=== PATIENT | female | born 2000 | race African-American/Black ===

== ENCOUNTER 2022-07-27 09:47 | Inpatient (IN) | payer OTHER, SELFPAY ==
[2022-07-27 10:21] VITALS: BMI 23.8
[2022-07-27] MEDS ORDERED: hydrALAZINE 20 MG/ML VIAL SLOW IVP PRN ×2 (10:22→16:17)
[2022-07-27 10:54] LABS: #Basophils 0.1 10x3/uL (0.0-0.2); #Eosinphils 0.1 10x3/uL (0.0-0.5); #Monocytes 0.8 10x3/uL (0.0-1.1); #Neutrophils 5.5 10x3/uL (1.5-8.4); %Basophils 0.7 % (0.0-2.0); %Eosinophils 1.4 % (0.0-6.0); %Lymphocytes 16.9 % (18.0-47.0); %Monocytes 10.2 % (0.0-10.0); %Neutrophils 68.6 % (40.0-75.0); Hemoglobin 12.7 g/dL (12.0-15.5); Mean Corpuscular HGB CONC 35.2 g/dL (32.0-36.0); Mean Corpuscular Hemoglobin 33.4 pg (27.0-33.0); Mean Platelet Volume 12.1 fl (7.4-10.4); Platelet Count 146 10x3/uL (150-450); RBC Distribution Width 12.5 % (11.5-14.5)
[2022-07-27 11:08] LABS: ALT (SGPT) 41 U/L (8-55); AST (SGOT) 42 U/L (5-34); Albumin 3.6 g/dL (3.5-5.0); Alkaline Phosphatase 157 U/L (40-110); Anion Gap 12 mmol/L (10-20); BUN (Urea Nitrogen) 8 mg/dL (7.0-18.7); Bilirubin, Total 1.1 mg/dL (0.2-1.2); Calc. Creatinine Clearance 120 mL/min (70-130); Calcium 9.4 mg/dL (7.8-10.44); Carbon Dioxide 22 mmol/L (22-29); Chloride 105 mmol/L (98-107); Estimated GFR 101; Globulin 3.7 g/dL (2.4-3.5); Glucose 72 mg/dL (70-105); Potassium 3.6 mmol/L (3.5-5.1); Protein, Total 7.3 g/dL (6.0-8.3); Sodium 135 mmol/L (136-145)
[2022-07-27 11:25] LABS: Creatinine, Urine 239.71 mg/dL (47-110)
[2022-07-27 11:39] LABS: Amphetamine Not Detected (NotDetected); Barbiturates Screen Not Detected (NotDetected); Benzodiazepine Screen Not Detected (NotDetected); Cocaine Metabolite Screen Not Detected (NotDetected); Methadone Not Detected (NotDetected); Methamphetamine Not Detected (NotDetected); Opiate Screen Not Detected (NotDetected); Oxycodone Screen Not Detected (NotDetected); Phencyclidine (PCP) Not Detected (NotDetected); THC/Cannabinoid Screen Detected (NotDetected); Tricyclic Screen Not Detected (NotDetected)
[2022-07-27 11:45] LABS: HBSAg Index 0.12 S/CO (0-0.99); HIV (1/2) Antibody/Antigen Non-Reactive (NonReactive); HIV 1/2 INDEX 0.08 S/CO (<1.00); Hep B Surf Ag Non-Reactive S/CO (NonReactive)
[2022-07-27 12:22] LABS: Syphilis Antibody Index 24.52 S/CO (<1.00 Non-Reactive)
[2022-07-27 12:25] LABS: Syphilis Antibody REACTIVE (Nonreactive)
[2022-07-27] MEDS ORDERED: hydrOXYzine 25 MG TAB PO PRN (16:58)
[2022-07-27 17:34] LABS: Hep C IgG Ab Non-Reactive (NonReactive); Hep C Index 0.07 S/CO (0-0.79)
[2022-07-27] MEDS: Prenatal Vitamin 1 TAB PO SCH (20:25)
[2022-07-28] MEDS: Prenatal Vitamin 1 TAB PO SCH (20:43)
[2022-07-29] MEDS ORDERED: Bicillin LA 2.4 MILL.UNITS/4 ML SYRINGE IM SCH (09:00)
[2022-07-29] MEDS: Prenatal Vitamin 1 TAB PO SCH (23:42)
[2022-07-30] MEDS: Prenatal Vitamin 1 TAB PO SCH (21:34)
[2022-07-31] MEDS ORDERED: Bupivacaine/Epinephrine 0.25% 30 ML VIAL ONE (08:00)
[2022-07-31 08:07] LABS: #Eosinphils 0.1 10x3/uL (0.0-0.5); #Monocytes 0.8 10x3/uL (0.0-1.1); #Neutrophils 4.9 10x3/uL (1.5-8.4); %Basophils 0.5 % (0.0-2.0); %Eosinophils 1.6 % (0.0-6.0); %Lymphocytes 18.5 % (18.0-47.0); %Monocytes 11.1 % (0.0-10.0); %Neutrophils 65.7 % (40.0-75.0); Hemoglobin 12.4 g/dL (12.0-15.5); Mean Corpuscular HGB CONC 34.6 g/dL (32.0-36.0); Mean Corpuscular Hemoglobin 33.1 pg (27.0-33.0); Mean Corpuscular Volume 95.5 fl (81.6-98.3); Mean Platelet Volume 12.2 fl (7.4-10.4); Platelet Count 141 10x3/uL (150-450); RBC Distribution Width 12.9 % (11.5-14.5); Red Blood Cell (RBC) Count 3.75 10x6/uL (3.90-5.03); White Blood Cell (WBC) Count 7.4 10x3/uL (3.5-10.5)
[2022-07-31 08:31] LABS: ALT (SGPT) 78 U/L (8-55); AST (SGOT) 64 U/L (5-34); Albumin 3.2 g/dL (3.5-5.0); Alkaline Phosphatase 140 U/L (40-110); Anion Gap 11 mmol/L (10-20); BUN (Urea Nitrogen) 9 mg/dL (7.0-18.7); Bilirubin, Total 1.4 mg/dL (0.2-1.2); Calc. Creatinine Clearance 118 mL/min (70-130); Calcium 9.3 mg/dL (7.8-10.44); Carbon Dioxide 22 mmol/L (22-29); Chloride 106 mmol/L (98-107); Estimated GFR 98; Globulin 3.5 g/dL (2.4-3.5); Glucose 68 mg/dL (70-105); Potassium 3.8 mmol/L (3.5-5.1); Protein, Total 6.7 g/dL (6.0-8.3); Sodium 135 mmol/L (136-145); Uric Acid 5.2 mg/dL (2.6-6.0)
[2022-07-31 13:55] LABS: Creatinine, Urine 40.28 mg/dL (47-110); Protein, Urine Random Quant Less than 10 mg/dL (1-14)
[2022-07-31 15:31] LABS: #Basophils 0.1 10x3/uL (0.0-0.2); #Eosinphils 0.1 10x3/uL (0.0-0.5); #Neutrophils 5.5 10x3/uL (1.5-8.4); %Basophils 0.6 % (0.0-2.0); %Eosinophils 1.2 % (0.0-6.0); %Lymphocytes 15.5 % (18.0-47.0); %Monocytes 12.4 % (0.0-10.0); %Neutrophils 68.2 % (40.0-75.0); Hemoglobin 12.5 g/dL (12.0-15.5); Mean Corpuscular HGB CONC 34.9 g/dL (32.0-36.0); Mean Corpuscular Hemoglobin 33.1 pg (27.0-33.0); Mean Corpuscular Volume 94.7 fl (81.6-98.3); Mean Platelet Volume 12.2 fl (7.4-10.4); Platelet Count 153 10x3/uL (150-450); RBC Distribution Width 12.9 % (11.5-14.5); Red Blood Cell (RBC) Count 3.78 10x6/uL (3.90-5.03); White Blood Cell (WBC) Count 8.1 10x3/uL (3.5-10.5)
[2022-07-31 15:45] LABS: INR-International Normal Ratio 0.9; PTT 28.8 sec (22.0-33.0); Prothrombin Time 9.8 sec (9.5-12.1)
[2022-07-31 15:52] LABS: ALT (SGPT) 86 U/L (8-55); AST (SGOT) 70 U/L (5-34); Albumin 3.4 g/dL (3.5-5.0); Alkaline Phosphatase 148 U/L (40-110); Anion Gap 12 mmol/L (10-20); BUN (Urea Nitrogen) 11 mg/dL (7.0-18.7); Bilirubin, Total 1.4 mg/dL (0.2-1.2); Calc. Creatinine Clearance 122 mL/min (70-130); Calcium 9.4 mg/dL (7.8-10.44); Carbon Dioxide 21 mmol/L (22-29); Chloride 106 mmol/L (98-107); Estimated GFR 102; Globulin 3.6 g/dL (2.4-3.5); Glucose 79 mg/dL (70-105); Potassium 4.1 mmol/L (3.5-5.1); Sodium 135 mmol/L (136-145); Uric Acid 5.1 mg/dL (2.6-6.0)
[2022-07-31] MEDS: Betamet Acet/Betamet Na Ph 30 MG/5 ML VIAL IM SCH (16:55)
[2022-07-31] MEDS: Prenatal Vitamin 1 TAB PO SCH (20:36)
[2022-07-31 21:14] LABS: Platelet Count 152 10x3/uL (150-450)
[2022-08-01 07:53] LABS: #Monocytes 0.7 10x3/uL (0.0-1.1); #Neutrophils 11.2 10x3/uL (1.5-8.4); %Basophils 0.3 % (0.0-2.0); %Eosinophils 0.1 % (0.0-6.0); %Lymphocytes 6.5 % (18.0-47.0); %Monocytes 5.3 % (0.0-10.0); %Neutrophils 85.2 % (40.0-75.0); Hemoglobin 12.6 g/dL (12.0-15.5); Mean Corpuscular HGB CONC 35.1 g/dL (32.0-36.0); Mean Corpuscular Hemoglobin 33.2 pg (27.0-33.0); Mean Corpuscular Volume 94.5 fl (81.6-98.3); Mean Platelet Volume 12.4 fl (7.4-10.4); Platelet Count 146 10x3/uL (150-450); RBC Distribution Width 12.8 % (11.5-14.5); White Blood Cell (WBC) Count 13.2 10x3/uL (3.5-10.5)
[2022-08-01 08:07] LABS: ALT (SGPT) 106 U/L (8-55); AST (SGOT) 83 U/L (5-34); Albumin 3.4 g/dL (3.5-5.0); Alkaline Phosphatase 147 U/L (40-110); Anion Gap 12 mmol/L (10-20); BUN (Urea Nitrogen) 9 mg/dL (7.0-18.7); Bilirubin, Total 1.4 mg/dL (0.2-1.2); Calc. Creatinine Clearance 118 mL/min (70-130); Carbon Dioxide 20 mmol/L (22-29); Chloride 105 mmol/L (98-107); Estimated GFR 98; Globulin 3.7 g/dL (2.4-3.5); Glucose 94 mg/dL (70-105); Potassium 4.3 mmol/L (3.5-5.1); Protein, Total 7.1 g/dL (6.0-8.3); Sodium 133 mmol/L (136-145)
[2022-08-01 08:24] LABS: INR-International Normal Ratio 0.9; Prothrombin Time 9.8 sec (9.5-12.1)
[2022-08-01] MEDS: Betamet Acet/Betamet Na Ph 30 MG/5 ML VIAL IM SCH (12:38)
[2022-08-01 12:43] LABS: Creatinine, Urine 229.16 mg/dL (47-110)
[2022-08-01] MEDS: Lactated Ringer's 1,000 ML IV SCH (19:32)
[2022-08-01] MEDS ORDERED: Lorazepam 2 MG/ML VIAL SLOW IVP PRN (20:37)
[2022-08-01] MEDS ORDERED: Calcium Gluc 4.6 MEQ/10 ML (100 MG/ML) SLOW IVP PRN (20:37)
[2022-08-01] MEDS ORDERED: hydrALAZINE 20 MG/ML VIAL SLOW IVP PRN ×2 (20:37)
[2022-08-01] MEDS ORDERED: Labetalol HCl 100 MG/20 ML VIAL SLOW IVP PRN ×2 (20:37)
[2022-08-01] MEDS ORDERED: Lidocaine 1% (PF) 30 ML VIAL SC PRN (20:38)
[2022-08-01 20:45] LABS: SARS-CoV-2 NAA Rapid Test Not Detected (NotDetected)
[2022-08-01] MEDS ORDERED: Penicillin G Potassium 5 MILL.UNITS in Sodium Chloride 0.9% 100 ML IVPB SCH (20:45)
[2022-08-01] MEDS: Magnesium Sulfate 20 gm/500 ml 20 GM/500 ML BAG IVPB SCH (21:01)
[2022-08-02] MEDS: Penicillin G 2.5 MILL.units 2.5 MILL.UNITS in Premix Bag 1 BAG IVPB SCH ×7 (01:23→23:30)
[2022-08-02] MEDS: Magnesium Sulfate 20 gm/500 ml 20 GM/500 ML BAG IVPB SCH ×2 (04:50→15:03)
[2022-08-02 04:53] LABS: #Monocytes 1.2 10x3/uL (0.0-1.1); #Neutrophils 15.4 10x3/uL (1.5-8.4); %Basophils 0.2 % (0.0-2.0); %Lymphocytes 5.2 % (18.0-47.0); %Monocytes 6.5 % (0.0-10.0); %Neutrophils 85.6 % (40.0-75.0); Hemoglobin 11.3 g/dL (12.0-15.5); Mean Corpuscular HGB CONC 34.7 g/dL (32.0-36.0); Mean Corpuscular Hemoglobin 32.5 pg (27.0-33.0); Mean Corpuscular Volume 93.7 fl (81.6-98.3); Mean Platelet Volume 12.2 fl (7.4-10.4); Platelet Count 156 10x3/uL (150-450); RBC Distribution Width 12.9 % (11.5-14.5); Red Blood Cell (RBC) Count 3.48 10x6/uL (3.90-5.03)
[2022-08-02 05:11] LABS: ALT (SGPT) 145 U/L (8-55); AST (SGOT) 109 U/L (5-34); Albumin 3.2 g/dL (3.5-5.0); Alkaline Phosphatase 145 U/L (40-110); Anion Gap 14 mmol/L (10-20); BUN (Urea Nitrogen) 11 mg/dL (7.0-18.7); Calc. Creatinine Clearance 114 mL/min (70-130); Calcium 8.5 mg/dL (7.8-10.44); Carbon Dioxide 18 mmol/L (22-29); Chloride 107 mmol/L (98-107); Estimated GFR 94; Globulin 3.3 g/dL (2.4-3.5); Glucose 103 mg/dL (70-105); Potassium 4.1 mmol/L (3.5-5.1); Protein, Total 6.5 g/dL (6.0-8.3); Sodium 135 mmol/L (136-145)
[2022-08-02 05:18] LABS: INR-International Normal Ratio 0.9; PTT 25.1 sec (22.0-33.0); Prothrombin Time 9.3 sec (9.5-12.1)
[2022-08-02] MEDS ORDERED: Fentanyl 2 mcg/Bup 0.1% Cadd 100 ML ONE (05:53)
[2022-08-02] MEDS ORDERED: Lactated Ringer's 500 ML IV PRN (06:47)
[2022-08-02] MEDS ORDERED: diphenhydrAMINE 50 MG/ML VIAL IVP PRN (06:47)
[2022-08-02] MEDS ORDERED: Naloxone HCl 0.4 mg/ml Vial IVP PRN ×2 (06:47)
[2022-08-02] MEDS ORDERED: ePHEDrine Sulfate 50 MG/10 ML VIAL SLOW IVP PRN (06:47)
[2022-08-02] MEDS ORDERED: Ondansetron PF 4 MG/2 ML Vial IVP PRN (06:47)
[2022-08-02] MEDS ORDERED: Promethazine HCl 25 MG/ML VIAL IM PRN (06:47)
[2022-08-02] MEDS ORDERED: Acetaminophen 325 MG TAB PO PRN (06:47)
[2022-08-02] MEDS ORDERED: Moisturizing Cream (Eucerin) 113 GM JAR TOP PRN (06:47)
[2022-08-02] MEDS ORDERED: Fentanyl 2 mcg/Bupivacaine 0.1% Cassette 100 ML EPIDURAL SCH (07:00)
[2022-08-02] MEDS ORDERED: Communication Order-Pharmacy FS SCH (07:00)
[2022-08-02] MEDS ORDERED: CEFAZOLIN 2 GM VIAL ONE (07:29)
[2022-08-02] MEDS ORDERED: Terbutaline Sulfate 1 MG/ML VIAL ONE (07:29)
[2022-08-02] MEDS ORDERED: Sodium Chloride 0.9% 100 ML ONE (07:30)
[2022-08-02] MEDS ORDERED: Famotidine/PF 20 mg/2ml Vial ONE (07:30)
[2022-08-02] MEDS ORDERED: Mineral Oil ENEMA ONE (07:30)
[2022-08-02] MEDS ORDERED: Mineral Oil Sterile 10 ML VIAL PO SCH (08:00)
[2022-08-02] MEDS ORDERED: Terbutaline Sulfate 1 MG/ML VIAL SC SCH (08:00)
[2022-08-02] MEDS ORDERED: Misoprostol 100 MCG TAB ONE (09:21)
[2022-08-02] MEDS ORDERED: NS w/ Oxytocin 30 units 500 ML ONE (09:32)
[2022-08-02] MEDS: NS w/ Oxytocin 30 units 500 ML IV SCH ×2 (09:34→17:14)
[2022-08-02 11:01] LABS: Group B Streptococcus by PCR DETECTED (NotDetected)
[2022-08-02] MEDS ORDERED: Calcium Carbonate 500 MG ChewTAB PO PRN (12:50)
[2022-08-02 18:26] LABS: Mean Corpuscular HGB CONC 34.3 g/dL (32.0-36.0); Mean Corpuscular Hemoglobin 32.7 pg (27.0-33.0); Mean Corpuscular Volume 95.5 fl (81.6-98.3); Platelet Count 142 10x3/uL (150-450); Red Blood Cell (RBC) Count 3.97 10x6/uL (3.90-5.03); White Blood Cell (WBC) Count 13.3 10x3/uL (3.5-10.5)
[2022-08-02 18:35] LABS: INR-International Normal Ratio 0.9; Prothrombin Time 9.3 sec (9.5-12.1)
[2022-08-02 19:02] LABS: ALT (SGPT) 223 U/L (8-55); AST (SGOT) 162 U/L (5-34); Alkaline Phosphatase 166 U/L (40-110); Anion Gap 16 mmol/L (10-20); BUN (Urea Nitrogen) 10 mg/dL (7.0-18.7); Bilirubin, Total 1.4 mg/dL (0.2-1.2); Calc. Creatinine Clearance 93 mL/min (70-130); Calcium 8.6 mg/dL (7.8-10.44); Carbon Dioxide 19 mmol/L (22-29); Chloride 103 mmol/L (98-107); Estimated GFR 74; Globulin 4.3 g/dL (2.4-3.5); Glucose 88 mg/dL (70-105); Potassium 3.8 mmol/L (3.5-5.1); Protein, Total 8.3 g/dL (6.0-8.3); Sodium 134 mmol/L (136-145)
[2022-08-02] MEDS: Prenatal Vitamin 1 TAB PO SCH ×2 (19:18→23:28)
[2022-08-02] MEDS: Lactated Ringer's 1,000 ML IV SCH (19:19)
[2022-08-02 20:09] LABS: Magnesium 9.1 mg/dL (1.6-2.6)
[2022-08-02] MEDS ORDERED: Misoprostol 200 MCG TAB ONE (21:27)
[2022-08-02] MEDS ORDERED: Tranexamic Acid 1,000 MG/10 ML VIAL ONE (21:27)
[2022-08-02] MEDS ORDERED: Bisacodyl 10 MG SUPP PR PRN (22:03)
[2022-08-03 01:10] LABS: Hemoglobin 11.5 g/dL (12.0-15.5); Mean Corpuscular HGB CONC 34.4 g/dL (32.0-36.0); Mean Corpuscular Hemoglobin 32.7 pg (27.0-33.0); Mean Corpuscular Volume 94.9 fl (81.6-98.3); Mean Platelet Volume 11.4 fl (7.4-10.4); Platelet Count 152 10x3/uL (150-450); RBC Distribution Width 13.1 % (11.5-14.5); Red Blood Cell (RBC) Count 3.52 10x6/uL (3.90-5.03); White Blood Cell (WBC) Count 11.8 10x3/uL (3.5-10.5)
[2022-08-03 01:21] LABS: INR-International Normal Ratio 0.9; PTT 25.3 sec (22.0-33.0); Prothrombin Time 9.4 sec (9.5-12.1)
[2022-08-03 01:33] LABS: ALT (SGPT) 159 U/L (8-55); AST (SGOT) 112 U/L (5-34); Alkaline Phosphatase 123 U/L (40-110); Anion Gap 14 mmol/L (10-20); BUN (Urea Nitrogen) 9 mg/dL (7.0-18.7); Bilirubin, Total 1.4 mg/dL (0.2-1.2); Calc. Creatinine Clearance 98 mL/min (70-130); Calcium 8.2 mg/dL (7.8-10.44); Carbon Dioxide 20 mmol/L (22-29); Chloride 105 mmol/L (98-107); Estimated GFR 79; Globulin 3.1 g/dL (2.4-3.5); Glucose 127 mg/dL (70-105); Magnesium 6.4 mg/dL (1.6-2.6); Potassium 3.5 mmol/L (3.5-5.1); Protein, Total 6.1 g/dL (6.0-8.3); Sodium 135 mmol/L (136-145)
[2022-08-03 05:13] LABS: ALT (SGPT) 136 U/L (8-55); AST (SGOT) 92 U/L (5-34); Albumin 2.7 g/dL (3.5-5.0); Alkaline Phosphatase 108 U/L (40-110); Anion Gap 10 mmol/L (10-20); BUN (Urea Nitrogen) 8 mg/dL (7.0-18.7); Bilirubin, Total 1.3 mg/dL (0.2-1.2); Calc. Creatinine Clearance 106 mL/min (70-130); Carbon Dioxide 23 mmol/L (22-29); Chloride 106 mmol/L (98-107); Estimated GFR 87; Globulin 2.8 g/dL (2.4-3.5); Glucose 82 mg/dL (70-105); Potassium 3.9 mmol/L (3.5-5.1); Protein, Total 5.5 g/dL (6.0-8.3); Sodium 135 mmol/L (136-145)
[2022-08-03 05:17] LABS: #Monocytes 1.6 10x3/uL (0.0-1.1); #Neutrophils 8.6 10x3/uL (1.5-8.4); %Basophils 0.3 % (0.0-2.0); %Eosinophils 0.3 % (0.0-6.0); %Lymphocytes 9.5 % (18.0-47.0); %Monocytes 13.5 % (0.0-10.0); %Neutrophils 74.8 % (40.0-75.0); Hemoglobin 10.3 g/dL (12.0-15.5); Mean Corpuscular HGB CONC 34.4 g/dL (32.0-36.0); Mean Corpuscular Hemoglobin 32.5 pg (27.0-33.0); Mean Corpuscular Volume 94.3 fl (81.6-98.3); Mean Platelet Volume 11.6 fl (7.4-10.4); Platelet Count 149 10x3/uL (150-450); RBC Distribution Width 12.9 % (11.5-14.5); Red Blood Cell (RBC) Count 3.17 10x6/uL (3.90-5.03); White Blood Cell (WBC) Count 11.5 10x3/uL (3.5-10.5)
[2022-08-03 05:25] LABS: Magnesium 5.2 mg/dL (1.6-2.6)
[2022-08-03] MEDS: Lactated Ringer's 1,000 ML IV SCH ×2 (05:53→17:57)
[2022-08-03] MEDS: Ibuprofen 800 MG TAB PO SCH ×3 (05:53→22:55)
[2022-08-03 15:47] LABS: Magnesium 4.7 mg/dL (1.6-2.6)
[2022-08-03] MEDS: Ferrous Sulfate 325 MG TAB PO SCH (22:37)
[2022-08-03] MEDS: Penicillin G 2.5 MILL.units 2.5 MILL.UNITS in Premix Bag 1 BAG IVPB SCH (22:38)
[2022-08-03] MEDS: Prenatal Vitamin 1 TAB PO SCH (22:38)
[2022-08-03] MEDS: Docusate 100 MG CAP PO SCH (22:38)
[2022-08-04] MEDS: Ibuprofen 800 MG TAB PO SCH ×3 (02:04→18:04)
[2022-08-04 04:30] LABS: #Eosinphils 0.1 10x3/uL (0.0-0.5); #Monocytes 1.4 10x3/uL (0.0-1.1); #Neutrophils 6.4 10x3/uL (1.5-8.4); %Basophils 0.4 % (0.0-2.0); %Eosinophils 0.9 % (0.0-6.0); %Lymphocytes 18.1 % (18.0-47.0); %Monocytes 14.1 % (0.0-10.0); %Neutrophils 65.4 % (40.0-75.0); Hemoglobin 10.5 g/dL (12.0-15.5); Mean Corpuscular HGB CONC 34.3 g/dL (32.0-36.0); Mean Corpuscular Hemoglobin 32.7 pg (27.0-33.0); Mean Corpuscular Volume 95.3 fl (81.6-98.3); Platelet Count 154 10x3/uL (150-450); Red Blood Cell (RBC) Count 3.21 10x6/uL (3.90-5.03); White Blood Cell (WBC) Count 9.8 10x3/uL (3.5-10.5)
[2022-08-04 04:33] LABS: ALT (SGPT) 164 U/L (8-55); AST (SGOT) 108 U/L (5-34); Albumin 2.6 g/dL (3.5-5.0); Alkaline Phosphatase 108 U/L (40-110); Anion Gap 14 mmol/L (10-20); BUN (Urea Nitrogen) 10 mg/dL (7.0-18.7); Bilirubin, Total 0.6 mg/dL (0.2-1.2); Calc. Creatinine Clearance 106 mL/min (70-130); Calcium 8.3 mg/dL (7.8-10.44); Carbon Dioxide 23 mmol/L (22-29); Chloride 107 mmol/L (98-107); Estimated GFR 87; Globulin 2.9 g/dL (2.4-3.5); Glucose 81 mg/dL (70-105); Potassium 3.6 mmol/L (3.5-5.1); Protein, Total 5.5 g/dL (6.0-8.3); Sodium 140 mmol/L (136-145)
[2022-08-04] MEDS: Docusate 100 MG CAP PO SCH ×2 (08:31→21:22)
[2022-08-04] MEDS: Ferrous Sulfate 325 MG TAB PO SCH ×2 (08:31→18:32)
[2022-08-04] MEDS: Prenatal Vitamin 1 TAB PO SCH (21:21)
[2022-08-05] MEDS: Ibuprofen 800 MG TAB PO SCH ×3 (01:02→17:36)
[2022-08-05 05:01] LABS: #Basophils 0.1 10x3/uL (0.0-0.2); #Eosinphils 0.2 10x3/uL (0.0-0.5); #Monocytes 1.1 10x3/uL (0.0-1.1); #Neutrophils 7.5 10x3/uL (1.5-8.4); %Basophils 0.5 % (0.0-2.0); %Eosinophils 1.9 % (0.0-6.0); %Lymphocytes 18.7 % (18.0-47.0); %Monocytes 9.9 % (0.0-10.0); Hemoglobin 10.3 g/dL (12.0-15.5); Mean Corpuscular HGB CONC 33.9 g/dL (32.0-36.0); Mean Corpuscular Hemoglobin 32.4 pg (27.0-33.0); Mean Corpuscular Volume 95.6 fl (81.6-98.3); Mean Platelet Volume 11.7 fl (7.4-10.4); Platelet Count 149 10x3/uL (150-450); RBC Distribution Width 12.9 % (11.5-14.5); Red Blood Cell (RBC) Count 3.18 10x6/uL (3.90-5.03); White Blood Cell (WBC) Count 11.1 10x3/uL (3.5-10.5)
[2022-08-05 05:14] LABS: ALT (SGPT) 178 U/L (8-55); AST (SGOT) 118 U/L (5-34); Albumin 2.6 g/dL (3.5-5.0); Alkaline Phosphatase 104 U/L (40-110); Anion Gap 10 mmol/L (10-20); BUN (Urea Nitrogen) 11 mg/dL (7.0-18.7); Bilirubin, Total 0.4 mg/dL (0.2-1.2); Calc. Creatinine Clearance 116 mL/min (70-130); Calcium 8.9 mg/dL (7.8-10.44); Carbon Dioxide 25 mmol/L (22-29); Chloride 107 mmol/L (98-107); Estimated GFR 97; Globulin 2.7 g/dL (2.4-3.5); Glucose 71 mg/dL (70-105); Potassium 4.2 mmol/L (3.5-5.1); Protein, Total 5.3 g/dL (6.0-8.3); Sodium 138 mmol/L (136-145)
[2022-08-05] MEDS: Boostrix 0.5 ML (Tdap) VIAL (>/=7 yrs of age) IM ONE (07:12)
[2022-08-05] MEDS: Ferrous Sulfate 325 MG TAB PO SCH ×2 (08:40→09:37)
[2022-08-05] MEDS ORDERED: Bicillin LA 2.4 MILL.UNITS/4 ML SYRINGE IM SCH (08:45)
[2022-08-05] MEDS: Docusate 100 MG CAP PO SCH ×2 (09:04→21:21)
[2022-08-05] MEDS: Prenatal Vitamin 1 TAB PO SCH (21:21)
[2022-08-06] MEDS: Ibuprofen 800 MG TAB PO SCH ×2 (00:32→08:33)
[2022-08-06 03:47] LABS: #Basophils 0.1 10x3/uL (0.0-0.2); #Eosinphils 0.3 10x3/uL (0.0-0.5); #Monocytes 1.3 10x3/uL (0.0-1.1); #Neutrophils 9.6 10x3/uL (1.5-8.4); %Basophils 0.4 % (0.0-2.0); %Eosinophils 2.4 % (0.0-6.0); %Lymphocytes 14.7 % (18.0-47.0); %Monocytes 9.5 % (0.0-10.0); %Neutrophils 71.1 % (40.0-75.0); Mean Corpuscular HGB CONC 33.7 g/dL (32.0-36.0); Mean Corpuscular Hemoglobin 32.4 pg (27.0-33.0); Mean Corpuscular Volume 96.1 fl (81.6-98.3); Mean Platelet Volume 11.5 fl (7.4-10.4); Platelet Count 174 10x3/uL (150-450); Red Blood Cell (RBC) Count 3.09 10x6/uL (3.90-5.03); White Blood Cell (WBC) Count 13.4 10x3/uL (3.5-10.5)
[2022-08-06 03:52] LABS: ALT (SGPT) 182 U/L (8-55); AST (SGOT) 97 U/L (5-34); Albumin 2.6 g/dL (3.5-5.0); Alkaline Phosphatase 100 U/L (40-110); Anion Gap 12 mmol/L (10-20); BUN (Urea Nitrogen) 19 mg/dL (7.0-18.7); Bilirubin, Total 0.4 mg/dL (0.2-1.2); Calc. Creatinine Clearance 115 mL/min (70-130); Calcium 8.9 mg/dL (7.8-10.44); Carbon Dioxide 23 mmol/L (22-29); Chloride 108 mmol/L (98-107); Estimated GFR 95; Globulin 2.9 g/dL (2.4-3.5); Glucose 94 mg/dL (70-105); Protein, Total 5.5 g/dL (6.0-8.3); Sodium 139 mmol/L (136-145)
[2022-08-06] MEDS: Docusate 100 MG CAP PO SCH (08:33)
[2022-08-06] MEDS: Ferrous Sulfate 325 MG TAB PO SCH (08:34)
[2022-08-06] MEDS: Boostrix 0.5 ML (Tdap) VIAL (>/=7 yrs of age) IM ONE (10:27)
[2022-08-06 11:53] VITALS: BP 127/68; TEMP 98.7
== END 2022-08-06 13:35 | disposition home or self-care (01) | DRG 806 ==
LOC: CSHLD/OP 09:47 → CSHLD 17:42 → CSHPP 18:37 → CSHANTE 19:36 → OBSVTOIN 07-31 16:25 → CSHLD 08-01 19:52 → CSHPP 08-03 22:17
PROVIDERS: ADMIT Family Medicine; ATTEND Family Medicine
PROC: 10S0XZZ Reposition Products of Conception, External Approach (ICD-10-PCS; principal; 2022-08-02)
PROC: 10E0XZZ Delivery of Products of Conception, External Approach (ICD-10-PCS; 2022-08-02)
PROC: 10907ZC Drainage of Amniotic Fluid, Therapeutic from Products of Conception, Via Natural or Artificial Opening (ICD-10-PCS; 2022-08-02)
PROC: 10H07YZ Insertion of Other Device into Products of Conception, Via Natural or Artificial Opening (ICD-10-PCS; 2022-08-02)
PROC: 3E033VJ Introduction of Other Hormone into Peripheral Vein, Percutaneous Approach (ICD-10-PCS; 2022-08-02)
DX: O14.14 Severe pre-eclampsia complicating childbirth (principal); O98.12 Syphilis complicating childbirth; Z37.0 Single live birth; O99.12 Other diseases of the blood and blood-forming organs and certain disorders involving the immune mechanism complicating childbirth; O98.32 Other infections with a predominantly sexual mode of transmission complicating childbirth; O99.324 Drug use complicating childbirth; O32.1XX0 Maternal care for breech presentation, not applicable or unspecified; O36.5930 Maternal care for other known or suspected poor fetal growth, third trimester, not applicable or unspecified; O99.344 Other mental disorders complicating childbirth; A52.8 Late syphilis, latent; F41.9 Anxiety disorder, unspecified; F32.A Depression, unspecified; D69.6 Thrombocytopenia, unspecified; A63.0 Anogenital (venereal) warts; F12.99 Cannabis use, unspecified with unspecified cannabis-induced disorder; O76 Abnormality in fetal heart rate and rhythm complicating labor and delivery; Z20.822 Contact with and (suspected) exposure to COVID-19; Z3A.35 35 weeks gestation of pregnancy; Z90.49 Acquired absence of other specified parts of digestive tract; Z98.890 Other specified postprocedural states
CPT/HCPCS: 36415; 51702; 59025; 59412; 76705; 76815; 76819; 80053; 80306; 82570; 83615; 83735; 84156; 84450; 84460; 84550; 85025; 85610; 85730; 86593; 86762; 86780; 86803; 86850; 86900; 86901; 87340; 87389; 87653; 90715; 93976; 99285; G0378; J0561; J0702; J2405; J2540; J2590; J3105; J3475; J3490; J7120; U0002

== ENCOUNTER → 2022-08-13 | Day surgery (SDC) | payer OTHER ==
[~2022-08-13] MED LIST: Bicillin LA 2.4 MILL.UNITS/4 ML SYRINGE IM SCH
== END ==
LOC: CSHERS 11:09 → CSHER/OP 11:09 → EDSTATUS 11:33
PROVIDERS: ATTEND Obstetrics & Gynecology
DX: Z51.81 Encounter for therapeutic drug level monitoring (principal); F17.210 Nicotine dependence, cigarettes, uncomplicated; Z79.2 Long term (current) use of antibiotics
CPT/HCPCS: 96372; J0561